=== PATIENT | female | born 1945 | race Caucasian/White ===

== ENCOUNTER 2017-02-14 18:15 | Emergency (ER) | payer MEDICARE, OTHER ==
--- NOTE | 2017-02-14 19:40 | EDM.PDOC ---
ED HPI GENERAL MEDICAL PROBLEM - General Chief Complaint: Cardiovascular Problem Stated Complaint: FROM HOME Time Seen by Provider: 02/14/17 19:15 Source of Information: Reports: Patient History Limitations: Reports: No Limitations - History of Present Illness INITIAL COMMENTS - FREE TEXT/NARRATIVE: This 72 yo female patient reports to the ED due to her home health nurse reporting that the patient needed to come to the ED due to high blood pressure and needing labs. The patient has not had a regular appointment with her primary care provider for "quite a while". The patient reports she has been having increased shortness of breath over the past several months and swelling in her lower extremities. Onset: Gradual Duration: Week(s):, Constant, Getting Worse Location: Reports: Generalized Quality: Reports: Other Severity: Mild Improves with: Reports: None Worsens with: Reports: None Associated Symptoms: Reports: Shortness of Breath - Related Data Allergies Allergy/AdvReac Type Severity Reaction Status Date / Time No Known Allergies Allergy Verified 02/14/17 18:58 Home Meds: Home Meds Amantadine [Symmetrel] 100 mg PO TID 02/14/17 [History] Carbidopa/Levodopa [Sinemet 25-100 mg Tablet] 1 each PO ASDIRECTED 02/14/17 [ History] Fludrocortisone [Florinef] 0.1 mg PO BIDMEALS 02/14/17 [History] Midodrine 5 mg PO QID 02/14/17 [History] Past Medical History HEENT History: Reports: Impaired Vision Cardiovascular History: Reports: Other (See Below) Other Cardiovascular History: hypotension [employer]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 ED EXAM, GENERAL - Physical Exam Exam: See Below Exam Limited By: No Limitations General Appearance: Alert, WD/WN, No Apparent Distress, Thin Eye Exam: Bilateral Eye: EOMI, Normal Inspection, PERRL Ears: Normal External Exam, Normal Canal, Hearing Grossly Normal, Normal TMs Nose: Normal Inspection, Normal Mucosa, No Blood Throat/Mouth: Normal Inspection, Normal Lips, Normal Teeth, Normal Gums, Normal Oropharynx, Normal Voice, No Airway Compromise Head: Atraumatic, Normocephalic Neck: Normal Inspection, Supple, Non-Tender, Full Range of Motion Respiratory/Chest: No Respiratory Distress, Lungs Clear, Normal Breath Sounds, No Accessory Muscle Use, Chest Non-Tender Cardiovascular: Normal Peripheral Pulses, Regular Rate, Rhythm, No Edema, No Gallop, No JVD, No Murmur, No Rub GI/Abdominal: Normal Bowel Sounds, Soft, Non-Tender, No Organomegaly, No Distention, No Abnormal Bruit, No Mass (Female) Exam: Deferred Rectal (Female) Exam: Deferred Back Exam: Normal Inspection, Full Range of Motion, NT Extremities: Normal Inspection, Normal Range of Motion, Non-Tender, Normal Capillary Refill, No Pedal Edema Neurological: Alert, Oriented, CN II-XII Intact, Normal Cognition, Normal Gait, Normal Reflexes, No Motor/Sensory Deficits Psychiatric: Normal Affect, Normal Mood Skin Exam: Warm, Dry, Intact, Normal Color, No Rash Lymphatic: No Adenopathy Course - Vital Signs Last Recorded V/S: Last Vital Signs Temp 36.8 C 02/14/17 18:53 Pulse 82 02/14/17 18:53 Resp 18 02/14/17 18:53 BP 133/85 02/14/17 18:53 Pulse Ox 97 02/14/17 18:53 - Orders/Labs/Meds Labs: Laboratory Tests 02/14/17 02/14/17 02/14/17 Range/Units 19:33 19:33 19:33 WBC 7.5 (5.0-10.0) 10^3/uL RBC 4.01 L (4.2-5.4) 10^6/uL Hgb 12.1 (12.0-16.0) g/dL Hct 37.4 (37.0-47.0) % MCV 93.3 (80-100) fL MCH 30.2 (27.0-34.0) pg MCHC 32.4 L (33.0-35.0) g/dL Plt Count 191 (150-450) 10^3/uL Neut % (Auto) 66.6 (42.2-75.2) % Lymph % (Auto) 25.0 (20.5-50.1) % [place] % (Auto) 7.5 (2-8) % Eos % (Auto) 0.8 L (1.0-3.0) % Baso % (Auto) 0.1 (0.0-1.0) % Sodium 139 (135-145) mmol/L Potassium 4.2 (3.6-5.0) mmol/L Chloride 102 (101-111) mmol/L Carbon Dioxide 29.0 (21.0-31.0) mmol/L Anion Gap 12.2 BUN 16 (7-18) mg/dL Creatinine 0.8 (0.6-1.3) mg/dL Est Cr Clr Drug Dosing 57.20 mL/min Estimated GFR (MDRD) > 60 BUN/Creatinine Ratio 20.00 Glucose 96 (74-105) mg/dL Calcium 9.0 (8.4-10.2) mg/dl Total Bilirubin 0.5 (0.2-1.0) mg/dL AST 13 (10-42) IU/L ALT < 5 L (10-60) IU/L Alkaline Phosphatase 68 (42-121) IU/L B-Natriuretic Peptide 77 (0-100) pg/ml Total Protein 7.0 (6.7-8.2) g/dl Albumin 4.4 (3.2-5.5) g/dl Globulin 2.6 Albumin/Globulin Ratio 1.69 Departure - Departure Time of Disposition: 20:03 Disposition: Home, Self-Care 01 Condition: Fair Clinical Impression: Shortness of breath Instructions: Shortness of Breath, [id number] Forms: ED Department Discharge Care Plan Goals: The patient and were advised of the examination, lab and x-ray results during the visit. The patient was encouraged to follow-up with her primary care facility for continued evaluation and further treatment. If the patient has any additional symptoms or concerns, the patient should follow-up with her primary care facility or return to the emergency department.
[2017-02-14 19:59] LABS: CHLORIDE,CL 102 mmol/L (101-111); SODIUM,NA 139 mmol/L (135-145)
== END 2017-02-14 20:15 | disposition home or self-care (01) ==
LOC: DL.ED 18:15
DX: R06.02 Shortness of breath (principal)
CPT/HCPCS: 36415; 71020; 80053; 83880; 85025; 99285

== ENCOUNTER 2018-11-06 12:56 | Emergency (ER) | payer MEDICARE, OTHER ==
--- NOTE | 2018-11-06 14:18 | EDM.PDOC ---
ED HPI GENERAL MEDICAL PROBLEM - General Chief Complaint: Respiratory Problem Stated Complaint: SOB,HIGH BLOOD PRESSURE Time Seen by Provider: 11/06/18 13:55 Source of Information: Reports: Patient, Family History Limitations: Reports: No Limitations - History of Present Illness INITIAL COMMENTS - FREE TEXT/NARRATIVE: This 73 yo female patient reports to the ED with a 2 month history of increased shortness of breath and elevated blood pressure. The patient reports she is on medications that keep her blood pressure elevated. The patient's home health nurse called the [facility] and was advised to have the patient come to the ED. Onset: Other Duration: Constant, Getting Worse Location: Reports: Chest, Other Quality: Reports: Other Severity: Moderate Improves with: Reports: None Worsens with: Reports: None Context: Reports: Other Associated Symptoms: Reports: No Other Symptoms - Related Data Allergies Allergy/AdvReac Type Severity Reaction Status Date / Time No Known Allergies Allergy Verified 11/06/18 14:04 Home Meds: Home Meds Amantadine [Symmetrel] 50 mg PO TID 02/14/17 [History] Carbidopa/Levodopa [Sinemet 25-100 mg Tablet] 2 tab PO ASDIRECTED 02/14/17 [ History] Fludrocortisone [Florinef] 0.1 mg PO DAILY 02/14/17 [History] Midodrine 5 mg PO ASDIRECTED 02/14/17 [History] Cholecalciferol (Vitamin D3) [Vitamin D3] 5,000 units PO DAILY 06/02/17 [History ] Cyanocobalamin (Vitamin B-12) [Cyanocobalamin Injection] ASDIRECTED 06/02/17 [ History] Cyanocobalamin (Vitamin B12) [Vitamin B12] 500 mcg PO DAILY 06/02/17 [History] Ibuprofen 200 mg PO Q4HR 06/02/17 [History] Melatonin 3 mg PO BEDTIME 06/02/17 [History] Aspirin 81 mg PO BEDTIME 11/06/18 [History] Cholecalciferol (Vitamin D3) [Vitamin D] 5,000 intlu PO DAILY 11/06/18 [History] Docusate Sodium 250 mg PO DAILY 11/06/18 [History] Past Medical History HEENT History: Reports: Impaired Vision Cardiovascular History: Reports: Other (See Below) Other Cardiovascular History: hypotension 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 ED EXAM, GENERAL - Physical Exam Exam: See Below Exam Limited By: No Limitations General Appearance: Alert, WD/WN, Moderate Distress, Thin Eye Exam: Bilateral Eye: EOMI, Normal Inspection, PERRL Ears: Normal External Exam, Normal Canal, Hearing Grossly Normal, Normal TMs Nose: Normal Inspection, Normal Mucosa, No Blood Throat/Mouth: Normal Inspection, Normal Lips, Normal Teeth, Normal Gums, Normal Oropharynx, Normal Voice, No Airway Compromise Head: Atraumatic Neck: Normal Inspection, Supple, Non-Tender, Full Range of Motion Respiratory/Chest: No Respiratory Distress, Lungs Clear, Normal Breath Sounds, No Accessory Muscle Use, Chest Non-Tender Cardiovascular: Normal Peripheral Pulses, Regular Rate, Rhythm, No Gallop, No JVD, No Murmur, No Rub GI/Abdominal: Normal Bowel Sounds, Soft, Non-Tender, No Organomegaly, No Distention, No Abnormal Bruit, No Mass (Female) Exam: Deferred Rectal (Female) Exam: Deferred Back Exam: Normal Inspection, Full Range of Motion, NT Extremities: Pedal Edema (bilateral worse on the right than the left), Leg Pain (right knee pain with swelling (ortho appointment schedules for 11/09/18)) Neurological: Alert, Oriented, CN II-XII Intact, Normal Cognition, Normal Gait, Normal Reflexes, No Motor/Sensory Deficits Psychiatric: Normal Affect, Normal Mood Skin Exam: Warm, Dry, Intact, Normal Color, No Rash Lymphatic: No Adenopathy Course - Vital Signs Last Recorded V/S: Last Vital Signs Temp 36.9 C 11/06/18 13:26 Pulse 132 H 11/06/18 13:26 Resp 20 11/06/18 13:26 BP 132/95 H 11/06/18 13:26 Pulse Ox 98 11/06/18 13:26 - Orders/Labs/Meds Orders: Active Orders 24 hr Category Date Time Status EKG Documentation Completion [RC] URGENT Care 11/06/18 13:43 Inactive EKG Documentation Completion [RC] URGENT Care 11/06/18 13:44 Active CULTURE URINE [RM] Urgent Lab 11/06/18 14:20 Received Labs: Laboratory Tests 11/06/18 11/06/18 11/06/18 Range/Units 13:55 13:55 13:55 WBC 8.4 (5.0-10.0) 10^3/uL RBC 4.02 L (4.2-5.4) 10^6/uL Hgb 12.5 (12.0-16.0) g/dL Hct 38.2 (37.0-47.0) % MCV 95.0 (80-100) fL MCH 31.1 (27.0-34.0) pg MCHC 32.7 L (33.0-35.0) g/dL Plt Count 196 (150-450) 10^3/uL Neut % (Auto) 67.4 (42.2-75.2) % Lymph % (Auto) 25.1 (20.5-50.1) % [place] % (Auto) 6.0 (2-8) % Eos % (Auto) 1.0 (1.0-3.0) % Baso % (Auto) 0.5 (0.0-1.0) % D-Dimer, Quantitative (0-400) ng/mL Sodium (135-145) mmol/L Potassium (3.6-5.0) mmol/L Chloride (101-111) mmol/L Carbon Dioxide (21.0-31.0) mmol/L Anion Gap BUN (7-18) mg/dL Creatinine (0.6-1.3) mg/dL Est Cr Clr Drug Dosing mL/min Estimated GFR (MDRD) BUN/Creatinine Ratio Glucose (74-105) mg/dL Lactic Acid 0.7 (0.5-2.2) mmol/L Calcium (8.4-10.2) mg/dl Total Bilirubin (0.2-1.0) mg/dL AST (10-42) IU/L ALT (10-60) IU/L Alkaline Phosphatase (42-121) IU/L Troponin I (0.00-0.02) ng/ml B-Natriuretic Peptide 154 H (0-100) pg/ml Total Protein (6.7-8.2) g/dl Albumin (3.2-5.5) g/dl Globulin Albumin/Globulin Ratio Urine Color (YELLOW) Urine Appearance (CLEAR) Urine pH (5.0-9.0) Ur Specific [place] (1.005-1.030) Urine Protein (NEGATIVE) Urine Glucose (UA) (NEGATIVE) Urine Ketones (NEGATIVE) Urine Occult Blood (NEGATIVE) Urine Nitrite (NEGATIVE) Urine Bilirubin (NEGATIVE) Urine Urobilinogen (0.2-1.0) mg/dL Ur Leukocyte Esterase (NEGATIVE) Urine RBC /HPF Urine WBC (0-5/HPF) /HPF Ur Epithelial Cells (NOT SEEN) /HPF Amorphous Sediment (NOT SEEN) /HPF Urine Bacteria (0-FEW/HPF) /HPF Urine Mucus (NOT SEEN) /LPF 11/06/18 11/06/18 11/06/18 Range/Units 13:55 13:55 14:20 WBC (5.0-10.0) 10^3/uL RBC (4.2-5.4) 10^6/uL Hgb (12.0-16.0) g/dL Hct (37.0-47.0) % MCV (80-100) fL MCH (27.0-34.0) pg MCHC (33.0-35.0) g/dL Plt Count (150-450) 10^3/uL Neut % (Auto) (42.2-75.2) % Lymph % (Auto) (20.5-50.1) % [place] % (Auto) (2-8) % Eos % (Auto) (1.0-3.0) % Baso % (Auto) (0.0-1.0) % D-Dimer, Quantitative 251 (0-400) ng/mL Sodium 143 (135-145) mmol/L Potassium 3.7 (3.6-5.0) mmol/L Chloride 106 (101-111) mmol/L Carbon Dioxide 28.0 (21.0-31.0) mmol/L Anion Gap 12.7 BUN 15 (7-18) mg/dL Creatinine 0.9 (0.6-1.3) mg/dL Est Cr Clr Drug Dosing 49.83 mL/min Estimated GFR (MDRD) > 60 BUN/Creatinine Ratio 16.66 Glucose 95 (74-105) mg/dL Lactic Acid (0.5-2.2) mmol/L Calcium 8.9 (8.4-10.2) mg/dl Total Bilirubin 0.6 (0.2-1.0) mg/dL AST 15 (10-42) IU/L ALT < 5 L (10-60) IU/L Alkaline Phosphatase 63 (42-121) IU/L Troponin I < 0.02 (0.00-0.02) ng/ml B-Natriuretic Peptide (0-100) pg/ml Total Protein 6.7 (6.7-8.2) g/dl Albumin 4.1 (3.2-5.5) g/dl Globulin 2.6 Albumin/Globulin Ratio 1.58 Urine Color Light yellow (YELLOW) Urine Appearance Clear (CLEAR) Urine pH 6.0 (5.0-9.0) Ur Specific [place] <= 1.005 (1.005-1.030) Urine Protein Negative (NEGATIVE) Urine Glucose (UA) Negative (NEGATIVE) Urine Ketones Negative (NEGATIVE) Urine Occult Blood Trace-lysed H (NEGATIVE) Urine Nitrite Negative (NEGATIVE) Urine Bilirubin Negative (NEGATIVE) Urine Urobilinogen 0.2 (0.2-1.0) mg/dL Ur Leukocyte Esterase Trace H (NEGATIVE) Urine RBC 0-5 /HPF Urine WBC 5-10 H (0-5/HPF) /HPF Ur Epithelial Cells Occasional (NOT SEEN) /HPF Amorphous Sediment Rare (NOT SEEN) /HPF Urine Bacteria Occasional (0-FEW/HPF) /HPF Urine Mucus Not seen (NOT SEEN) /LPF Departure - Departure Time of Disposition: 16:30 Disposition: Home, Self-Care 01 Condition: Fair Clinical Impression: COPD (chronic obstructive pulmonary disease) Qualifiers: COPD type: unspecified COPD Qualified Code(s): J44.9 - Chronic obstructive pulmonary disease, unspecified - Discharge Information *PRESCRIPTION DRUG MONITORING PROGRAM REVIEWED*: Not Applicable *COPY OF PRESCRIPTION DRUG MONITORING REPORT IN PATIENT JANET: Not Applicable Instructions: Chronic Obstructive Pulmonary Disease Exacerbation, [id number] Forms: ED Department Discharge Care Plan Goals: The patient and family were advised of the examination, lab, EKG, x-ray and CT results during the visit. The patient was encouraged to continue to monitor blood pressures with documented times. The patient should follow-up with her primary care facility for continued evaluation (PFT's) and treatment. If the patient has any additional symptoms or concerns, the patient should either return to the emergency department or visit her primary care facility. - My Orders Last 24 Hours: My Active Orders 11/06/18 13:43 EKG Documentation Completion [RC] URGENT 11/06/18 13:44 EKG Documentation Completion [RC] URGENT 11/06/18 14:20 CULTURE URINE [RM] Urgent - Assessment/Plan Last 24 Hours: My Active Orders 11/06/18 13:43 EKG Documentation Completion [RC] URGENT 11/06/18 13:44 EKG Documentation Completion [RC] URGENT 11/06/18 14:20 CULTURE URINE [RM] Urgent
[2018-11-06 14:22] LABS: ANION GAP 12.7; CHLORIDE,CL 106 mmol/L (101-111); SODIUM,NA 143 mmol/L (135-145)
--- NOTE | 2018-11-06 15:31 | CR ---
Clinical history: 73-year-old female with chronic shortness of breath (CXR February 2017 for same complaint). Smoker? Interpretation: Abnormal. (Comparison exam 14 February 2017) Generalized air trapping and asymmetric fibronodular densities left lung apex. Note: New nodular lesion right costophrenic sulcus on PA film that warrants further evaluation. Recommend, at least, unenhanced CT scan chest. No signs of heart failure, other lung mass, hilar lymphadenopathy or focal lobar pneumonia. No atelectasis/collapse. No pneumothorax. Osteoporosis, mild kyphosis, multilevel disc disease and hypertrophic spondylosis dorsal spine. CONCLUSION: Abnormality suggesting COPD. New lung nodule, RLL.
--- NOTE | 2018-11-06 16:22 | CT ---
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 Scan technique: Volume acquisition of data unenhanced screening CT scan chest (bony thorax, lungs and mediastinum) obtained with patient lying supine on the Siemens multi slice scanner [place], [place]. All data archived in the PACS system for storage, reformatting axial/sagittal/coronal planes and study (lung/mediastinal windows). Interpretation: 1. Linear atelectasis/pleural parenchymal fibrosis laterally in the right cost phrenic sulcus communicating "lung nodule". 2. Platelike atelectasis posterior segment contralateral left lower lobe, posterior medially (behind the heart). Lingular fibrosis. 3. Generalized air trapping and some apical pleural scarring. No other evidence parenchymal lung nodule or mass lesion. 4. No significant hilar or mediastinal lymphadenopathy. No cystic or bullous emphysematous lesions. No malignant effusions. 5. Normal cardiac silhouette. No pericardial effusion, cephalization of vascular flow, alveolar edema or dependent pleural fluid. 6. Unenhanced upper abdominal viscera unremarkable. Normal caliber thoracic and upper abdominal aorta. Kyphosis, osteoporosis and marginal spondylosis dorsal spine. No pathologic skeletal lesion, fracture or dislocation. CONCLUSION: Pleural parenchymal scarring and atelectasis. Generalized air trapping. No signs of heart failure, lung mass or lobar pneumonia. Specifically, no sign of lung nodule or malignant mass lesion.
== END 2018-11-06 16:46 | disposition home or self-care (01) ==
LOC: DL.ED 12:56
DX: J44.9 Chronic obstructive pulmonary disease, unspecified (principal); M25.561 Pain in right knee; G20 Parkinson's disease; Z79.82 Long term (current) use of aspirin; Z79.899 Other long term (current) drug therapy
CPT/HCPCS: 36415; 71046; 71250; 80053; 81001; 83605; 83880; 84484; 85025; 85379; 87086; 93005; 99285-25

== ENCOUNTER 2020-06-06 03:26 | Observation (INO) | payer MEDICARE, OTHER ==
[2020-06-06 04:15] LABS: ANION GAP 11.6 mEq/L (7-13)
--- NOTE | 2020-06-06 04:24 | EDM.PDOC ---
ED HPI GENERAL MEDICAL PROBLEM - General Stated Complaint: [facility] Time Seen by Provider: 06/06/20 03:29 Source of Information: Reports: Patient, EMS, Family, RN History Limitations: Reports: No Limitations - History of Present Illness INITIAL COMMENTS - FREE TEXT/NARRATIVE: ED via [facility] with report increased legth of confusion and paranoia tonight. Spouse reports hx of confusional states due to parkinsonsons but over past 2 months getting more frequent and more severe. Tonight , thought people were trying to break into home. Patient has not slept more than one hour in past 2 nights. Wandering across street to neighbors without jacket or coat. Right Leg Pain Score (Numeric/FACES): 8 - Related Data Allergies Allergy/AdvReac Type Severity Reaction Status Date / Time No Known Allergies Allergy Verified 06/06/20 05:56 Home Meds: Home Meds Amantadine [Symmetrel] 50 mg PO TID 02/14/17 [History] Carbidopa/Levodopa [Sinemet 25-100 mg Tablet] 2 tab PO Q3H 02/14/17 [History] Fludrocortisone [Florinef] 0.05 mg PO DAILY 02/14/17 [History] Midodrine 5 mg PO QID 02/14/17 [History] Cyanocobalamin (Vitamin B-12) [Cyanocobalamin Injection] 1,000 mcg IM Q30D 06/02/17 [History] Ibuprofen 200 mg PO Q4HR 06/02/17 [History] Melatonin 3 mg PO BEDTIME 06/02/17 [History] Aspirin 81 mg PO BEDTIME 11/06/18 [History] Cholecalciferol (Vitamin D3) [Vitamin D] 5,000 intlu PO DAILY 11/06/18 [History] Docusate Sodium 250 mg PO DAILY 11/06/18 [History] Donepezil HCl [Aricept] 10 mg PO BID 06/06/20 [History] Vitamin B Complex 1 each PO DAILY 06/06/20 [History] Past Medical History HEENT History: Reports: Impaired Vision Cardiovascular History: Reports: Other (See Below) Other Cardiovascular History: hypotension Respiratory History: Reports: SOB Gastrointestinal History: Reports: None Genitourinary History: Reports: None DIRECTOR PHYSICAL History: Reports: Musculoskeletal History: Reports: Other (See Below) Other Musculoskeletal History: Parkinsons Neurological History: Reports: Parkinson's Hematologic History: Reports: Anemia, B12 Deficiency Social & Family History - Caffeine Use Caffeine Use: Reports: Coffee, Soda ED ROS GENERAL - Review of Systems Review Of Systems: See Below Constitutional: Reports: Weakness (general). Denies: Fever, Chills HEENT: Reports: No Symptoms, Glasses Respiratory: Reports: No Symptoms Cardiovascular: Reports: No Symptoms GI/Abdominal: Reports: No Symptoms : Reports: Frequency, Urgency Musculoskeletal: Reports: Leg Pain (chronic right knee) Skin: Reports: Bruising Neurological: Reports: Confusion, Tremors ED EXAM, GENERAL - Physical Exam Exam: See Below Exam Limited By: No Limitations General Appearance: Alert, Mild Distress, Thin Eye Exam: Bilateral Eye: EOMI, PERRL Ears: Normal External Exam, Hearing Grossly Normal Nose: Normal Inspection Throat/Mouth: Normal Voice, Other (mucus membranes slightly tacky) Head: Atraumatic, Normocephalic Neck: Normal Inspection Respiratory/Chest: No Respiratory Distress, Lungs Clear, Normal Breath Sounds Cardiovascular: Regular Rate, Rhythm GI/Abdominal: Normal Bowel Sounds Back Exam: Full Range of Motion Extremities: Normal Inspection Neurological: Alert, Oriented, Normal Cognition Psychiatric: Anxious Skin Exam: Warm, Dry, Intact Course - Vital Signs Last Recorded V/S: Last Vital Signs Temp 98 F 06/07/20 01:00 Pulse 70 06/07/20 01:00 Resp 20 06/07/20 01:00 BP 150/66 H 06/07/20 01:00 Pulse Ox 97 06/07/20 01:00 - Orders/Labs/Meds Orders: Active Orders 24 hr Category Date Time Status CULTURE BLOOD [BC] Stat Lab 06/06/20 03:42 Received CULTURE URINE [RM] Stat Lab 06/06/20 03:42 Received Medication Orders Acetaminophen (Acetaminophen 325 Mg Tab) 650 mg PO Q4H PRN PRN Reason: Pain (Mild 1-3)/fever Aspirin (Aspirin 81 Mg Tab.Chew) 81 mg PO BEDTIME [facility] Last Admin: 06/06/20 20:38 Dose: 81 mg Documented by: NATALY Carbidopa/Levodopa (Carbidopa/Levodopa 25-100 Mg Tab) 2 tab PO Q3H [facility] Last Admin: 06/07/20 01:02 Dose: 2 tab Documented by: Admin: 06/06/20 21:54 Dose: 2 tab Documented by: Admin: 06/06/20 18:08 Dose: 2 tab Documented by: Admin: 06/06/20 16:14 Dose: 2 tab Documented by: Admin: 06/06/20 13:11 Dose: 2 tab Documented by: Admin: 06/06/20 10:04 Dose: 2 tab Documented by: Admin: 06/06/20 07:36 Dose: 2 tab Documented by: MARIAM Docusate Sodium (Docusate Sodium 100 Mg Cap) 200 mg PO DAILY [facility] Last Admin: 06/06/20 09:27 Dose: 200 mg Documented by: MARIAM Donepezil HCl (Donepezil 10 Mg Tab) 10 mg PO BID [facility] Last Admin: 06/06/20 20:38 Dose: 10 mg Documented by: Admin: 06/06/20 09:28 Dose: 10 mg Documented by: MARIAM Enoxaparin Sodium (Enoxaparin 40 Mg/0.4 Ml Syringe) 40 mg SUBCUT DAILY [facility] Fludrocortisone Acetate (Fludrocortisone 0.1 Mg Tab) 0.05 mg PO DAILY [facility] Last Admin: 06/06/20 09:27 Dose: 0.05 mg Documented by: MARIAM Ibuprofen (Ibuprofen 200 Mg Tab) 200 mg PO Q4H PRN PRN Reason: Pain (moderate 4-6) Last Admin: 06/06/20 20:37 Dose: 200 mg Documented by: NATALY Melatonin (Melatonin 3 Mg Tab) 3 mg PO BEDTIME [facility] Last Admin: 06/06/20 21:55 Dose: 3 mg Documented by: NATALY Midodrine (Midodrine 2.5 Mg Tab) 5 mg PO 0700,1000,1300,1600 [facility] Last Admin: 06/06/20 16:14 Dose: 5 mg Documented by: Admin: 06/06/20 13:10 Dose: 5 mg Documented by: Admin: 06/06/20 10:05 Dose: 5 mg Documented by: Admin: 06/06/20 07:36 Dose: 5 mg Documented by: MARIAM Polyethylene Glycol (Polyethylene Glycol 3350 Powder 17 Gm Packet) 17 gm PO DAILY [facility] Quetiapine Fumarate (Quetiapine 25 Mg Tab) 25 mg PO BID [facility] Last Admin: 06/06/20 21:55 Dose: 25 mg Documented by: NATALY Sodium Chloride (Sodium Chloride 0.9% 10 Ml Syringe) 10 ml FLUSH ASDIRECTED PRN PRN Reason: Keep Vein Open Last Admin: 06/06/20 21:57 Dose: 10 ml Documented by: NATALY Labs: Laboratory Tests 06/06/20 06/06/20 06/06/20 Range/Units 03:42 03:42 03:42 WBC 5.0 (5.0-10.0) 10^3/uL RBC 3.87 L (4.2-5.4) 10^6/uL Hgb 12.2 (12.0-16.0) g/dL Hct 37.2 (37.0-47.0) % MCV 96.1 (80-100) fL MCH 31.5 (27.0-34.0) pg MCHC 32.8 L (33.0-35.0) g/dL Plt Count 158 (150-450) 10^3/uL Neut % (Auto) 55.6 (42.2-75.2) % Lymph % (Auto) 33.7 (20.5-50.1) % [place] % (Auto) 9.1 H (2-8) % Eos % (Auto) 1.0 (1.0-3.0) % Baso % (Auto) 0.6 (0.0-1.0) % PT (9.0-12.0) SEC INR (0.9-1.2) Sodium 146 H (136-145) mmol/L Potassium 3.6 (3.5-5.1) mmol/L Chloride 107 (98-107) mmol/L Carbon Dioxide 31 (21-32) mmol/L Anion Gap 11.6 (7-13) mEq/L BUN 17 (7-18) mg/dL Creatinine 0.92 (0.55-1.02) mg/dL Est Cr Clr Drug Dosing 43.89 mL/min Estimated GFR (MDRD) 60 BUN/Creatinine Ratio 18.5 (No establ ref range) Glucose 109 H (74-99) mg/dL Lactic Acid (0.4-2.0) mmol/L Calcium 9.1 (8.5-10.1) mg/dL Magnesium 1.7 L (1.8-2.4) mg/dL Total Bilirubin 0.6 (0.2-1.0) mg/dL AST 15 (15-37) U/L ALT 9 L (14-59) U/L Alkaline Phosphatase 63 (46-116) U/L B-Natriuretic Peptide 150 H (0-100) pg/ml Total Protein 6.9 (6.4-8.2) g/dL Albumin 3.7 (3.4-5.0) g/dL Globulin 3.2 Albumin/Globulin Ratio 1.2 Urine Color Yellow (YELLOW) Urine Appearance Clear (CLEAR) Urine pH 5.5 (5.0-9.0) Ur Specific [place] 1.015 (1.005-1.030) Urine Protein Negative (NEGATIVE) Urine Glucose (UA) Negative (NEGATIVE) Urine Ketones Negative (NEGATIVE) Urine Occult Blood Negative (NEGATIVE) Urine Nitrite Negative (NEGATIVE) Urine Bilirubin Negative (NEGATIVE) Urine Urobilinogen 0.2 (0.2-1.0) mg/dL Ur Leukocyte Esterase Trace H (NEGATIVE) Urine RBC 0-5 /HPF Urine WBC 10-20 H (0-5/HPF) /HPF Ur Epithelial Cells Rare (NOT SEEN) /HPF Amorphous Sediment Rare (NOT SEEN) /HPF Urine Bacteria Few (0-FEW/HPF) /HPF Urine Mucus Rare (NOT SEEN) /LPF 06/06/20 06/06/20 Range/Units 03:42 03:42 WBC (5.0-10.0) 10^3/uL RBC (4.2-5.4) 10^6/uL Hgb (12.0-16.0) g/dL Hct (37.0-47.0) % MCV (80-100) fL MCH (27.0-34.0) pg MCHC (33.0-35.0) g/dL Plt Count (150-450) 10^3/uL Neut % (Auto) (42.2-75.2) % Lymph % (Auto) (20.5-50.1) % [place] % (Auto) (2-8) % Eos % (Auto) (1.0-3.0) % Baso % (Auto) (0.0-1.0) % PT 11.0 (9.0-12.0) SEC INR 1.1 (0.9-1.2) Sodium (136-145) mmol/L Potassium (3.5-5.1) mmol/L Chloride (98-107) mmol/L Carbon Dioxide (21-32) mmol/L Anion Gap (7-13) mEq/L BUN (7-18) mg/dL Creatinine (0.55-1.02) mg/dL Est Cr Clr Drug Dosing mL/min Estimated GFR (MDRD) BUN/Creatinine Ratio (No establ ref range) Glucose (74-99) mg/dL Lactic Acid 0.9 (0.4-2.0) mmol/L Calcium (8.5-10.1) mg/dL Magnesium (1.8-2.4) mg/dL Total Bilirubin (0.2-1.0) mg/dL AST (15-37) U/L ALT (14-59) U/L Alkaline Phosphatase (46-116) U/L B-Natriuretic Peptide (0-100) pg/ml Total Protein (6.4-8.2) g/dL Albumin (3.4-5.0) g/dL Globulin Albumin/Globulin Ratio Urine Color (YELLOW) Urine Appearance (CLEAR) Urine pH (5.0-9.0) Ur Specific [place] (1.005-1.030) Urine Protein (NEGATIVE) Urine Glucose (UA) (NEGATIVE) Urine Ketones (NEGATIVE) Urine Occult Blood (NEGATIVE) Urine Nitrite (NEGATIVE) Urine Bilirubin (NEGATIVE) Urine Urobilinogen (0.2-1.0) mg/dL Ur Leukocyte Esterase (NEGATIVE) Urine RBC /HPF Urine WBC (0-5/HPF) /HPF Ur Epithelial Cells (NOT SEEN) /HPF Amorphous Sediment (NOT SEEN) /HPF Urine Bacteria (0-FEW/HPF) /HPF Urine Mucus (NOT SEEN) /LPF Meds: Medications Generic Name Dose Route Start Last Admin Trade Name Freq PRN Reason Stop Dose Admin Acetaminophen 650 mg 06/06/20 07:18 Acetaminophen 325 Mg Tab PO Q4H PRN Pain (Mild 1-3)/fever Aspirin 81 mg 06/06/20 21:00 06/06/20 20:38 Aspirin 81 Mg Tab.Chew PO 81 mg BEDTIME [facility] Administration Carbidopa/Levodopa 2 tab 06/06/20 07:00 06/07/20 01:02 Carbidopa/Levodopa 25-100 Mg Tab PO 2 tab Q3H [facility] Administration Docusate Sodium 200 mg 06/06/20 09:00 06/06/20 09:27 Docusate Sodium 100 Mg Cap PO 200 mg DAILY [facility] Administration Donepezil HCl 10 mg 06/06/20 09:00 06/06/20 20:38 Donepezil 10 Mg Tab PO 10 mg BID [facility] Administration Enoxaparin Sodium 40 mg 06/07/20 09:00 Enoxaparin 40 Mg/0.4 Ml Syringe SUBCUT DAILY [facility] Fludrocortisone Acetate 0.05 mg 06/06/20 09:00 06/06/20 09:27 Fludrocortisone 0.1 Mg Tab PO 0.05 mg DAILY [facility] Administration Ibuprofen 200 mg 06/06/20 20:14 06/06/20 20:37 Ibuprofen 200 Mg Tab PO 200 mg Q4H PRN Administration Pain (moderate 4-6) Melatonin 3 mg 06/06/20 21:00 06/06/20 21:55 Melatonin 3 Mg Tab PO 3 mg BEDTIME [facility] Administration Midodrine 5 mg 06/06/20 07:30 06/06/20 16:14 Midodrine 2.5 Mg Tab PO 5 mg 0700,1000,1300,1600 [facility] Administration Polyethylene Glycol 17 gm 06/07/20 09:00 Polyethylene Glycol 3350 Powder 17 Gm Packet PO DAILY [facility] Quetiapine Fumarate 25 mg 06/06/20 21:00 06/06/20 21:55 Quetiapine 25 Mg Tab PO 25 mg BID [facility] Administration Sodium Chloride 10 ml 06/06/20 20:43 06/06/20 21:57 Sodium Chloride 0.9% 10 Ml Syringe FLUSH 10 ml ASDIRECTED PRN Administration Keep Vein Open Discontinued Medications Generic Name Dose Route Start Last Admin Trade Name Freq PRN Reason Stop Dose Admin Amantadine HCl 50 mg 06/06/20 09:00 06/06/20 14:17 Amantadine 100 Mg Cap PO Not Given TID [facility] Carbidopa/Levodopa 1 tab 06/06/20 04:28 06/06/20 04:38 Carbidopa/Levodopa 25-100 Mg Tab PO 06/06/20 04:29 1 tab ONETIME ONE Administration Carbidopa/Levodopa 1 tab 06/06/20 05:40 06/06/20 05:54 Carbidopa/Levodopa 25-100 Mg Tab PO 06/06/20 05:41 1 tab ONETIME ONE Administration Enoxaparin Sodium 30 mg 06/07/20 09:00 Enoxaparin 30 Mg/0.3 Ml Syringe SUBCUT DAILY [facility] Heparin Sodium (Porcine) 5,000 units 06/06/20 14:00 06/06/20 21:58 Heparin Sodium 5,000 Units/Ml Vial SUBCUT Not Given Q8HR [facility] Amantadine 100 Mg 0 each 06/06/20 13:00 06/06/20 13:54 Tab Pt Own Med PO 0.5 each BID@0700,1900 [facility] Administration Quetiapine Fumarate 12.5 mg 06/06/20 07:29 06/06/20 07:39 Quetiapine 25 Mg Tab PO 06/06/20 07:30 12.5 mg ONETIME ONE Administration - Re-Assessments/Exams Free Text/Narrative Re-Assessment/Exam: 06/06/20 05:22 transient confusion and paranoia. Urinary frequency and urgency. Departure - Departure Time of Disposition: 05:45 Disposition: Refer to Observation Clinical Impression: Parkinson's disease, Transient confusion, Unsteady gait, Urinary frequency COPD (chronic obstructive pulmonary disease) Qualifiers: COPD type: unspecified COPD Qualified Code(s): J44.9 - Chronic obstructive pulmonary disease, unspecified Insomnia disorder Qualifiers: Insomnia type: unspecified Qualified Code(s): G47.00 - Insomnia, unspecified - Discharge Information - My Orders Last 24 Hours: My Active Orders 06/06/20 03:42 CULTURE BLOOD [BC] Stat CULTURE URINE [RM] Stat - Assessment/Plan Last 24 Hours: My Active Orders 06/06/20 03:42 CULTURE BLOOD [BC] Stat CULTURE URINE [RM] Stat
[2020-06-06] MEDS ORDERED: Carbidopa/Levodopa 25-100 MG Tab PO ONE ×2 (04:28→05:40)
--- NOTE | 2020-06-06 04:35 | CT ---
PROCEDURE INFORMATION: Exam: CT Head Without Contrast Exam date and time: 06/06/2020 4:17 AM Age: 75 years old Clinical indication: Altered mental status/memory loss; Confusion or disorientation; Additional info: Altered mental state TECHNIQUE: Imaging protocol: Computed tomography of the head without contrast. Radiation optimization: All CT scans at this facility use at least one of these dose optimization techniques: automated exposure control; mA and/or kV adjustment per patient size (includes targeted exams where dose is matched to clinical indication); or iterative reconstruction. Other technique: STROKE PROTOCOL was implemented. COMPARISON: No relevant prior studies available. FINDINGS: Brain: No acute infarct or hemorrhage. There is mild parenchymal atrophy and chronic small vessel disease. Cerebral ventricles: No ventriculomegaly. Bones/joints: Unremarkable. No acute fracture. Paranasal sinuses: Paranasal sinuses are clear. No air-fluid level. Mastoid air cells: Visualized mastoid air cells are clear. Soft tissues: Unremarkable. Other findings: Images are degraded by motion. IMPRESSION: 1. No acute infarct or hemorrhage. 2. Images are degraded by motion. 3. Mild parenchymal atrophy and chronic small vessel disease. ASSESSMENT: ASPECTS ([place] Stroke Program Early CT Score) is 10.
--- NOTE | 2020-06-06 04:40 | CR ---
PROCEDURE INFORMATION: Exam: XR Chest Exam date and time: 06/06/2020 4:23 AM Age: 75 years old Clinical indication: Shortness of breath; Additional info: Altered mental state TECHNIQUE: Imaging protocol: XR of the chest Views: 1 view. COMPARISON: CR Chest 2V 01/12/2019 10:08 AM FINDINGS: Lungs: Unremarkable. No consolidation. Pleural spaces: Unremarkable. No pleural effusion. No pneumothorax. Heart/Mediastinum: Unremarkable. No cardiomegaly. Bones/joints: Unremarkable. IMPRESSION: No acute findings.
--- NOTE | 2020-06-06 06:57 | PCM.HP ---
H&P History of Present Illness - General Date of Service: 06/06/20 Admit Problem/Dx: Admission Diagnosis/Problem Admission Diagnosis/Problem Confusion and disorientation - History of Present Illness Initial Comments - Free Text/Narative: 75F w/ pmh PD, hypotension, COVID19 several months ago p/w hallucinations. Pt lives w/ who provides extensive hx. Over past several months the pt has developed paranoia and hallucinations. She typically hallucinates people sitting on chairs or on the couch in the house. Sometimes they have multiple heads. This makes her very upset. She denies hearing any voices. They people she sees don't say anything to her. She has not been combative or aggressive towards the . He works during the day and is home for the night. Rarely, but the patient has been known to wonder out of the house to look for him. He denies any truly dangerous situations ex. wondering out dressed inappropriately, leaving stove on, leaving the house door open. She denies any physical symptoms of pain, nausea, abdominal pains, dyspnea, cough. She does have chronic dysuria since her COVID19 diagnosis several months ago. Of note the pt is on a rather large Sinemet dose. She takes 2x 25/100 mg tabs q3h. This is a total of 1.6 grams of levodopa per 24h. Additionally she takes amantadine. In addition to current paranoia and hallucinations in the past the pt had apparently been noted hypotensive requiring florinef and midodrine for maintenance. - Related Data Allergies/Adverse Reactions: Allergies Allergy/AdvReac Type Severity Reaction Status Date / Time No Known Allergies Allergy Verified 06/06/20 05:56 Home Medications: Home Meds Amantadine [Symmetrel] 50 mg PO TID 02/14/17 [History] Carbidopa/Levodopa [Sinemet 25-100 mg Tablet] 2 tab PO Q3H 02/14/17 [History] Fludrocortisone [Florinef] 0.05 mg PO DAILY 02/14/17 [History] Midodrine 5 mg PO QID 02/14/17 [History] Cyanocobalamin (Vitamin B-12) [Cyanocobalamin Injection] 1,000 mcg IM Q30D 06/02/17 [History] Ibuprofen 200 mg PO Q4HR 06/02/17 [History] Melatonin 3 mg PO BEDTIME 06/02/17 [History] Aspirin 81 mg PO BEDTIME 11/06/18 [History] Cholecalciferol (Vitamin D3) [Vitamin D] 5,000 intlu PO DAILY 11/06/18 [History] Docusate Sodium 250 mg PO DAILY 11/06/18 [History] Donepezil HCl [Aricept] 10 mg PO BID 06/06/20 [History] Vitamin B Complex 1 each PO DAILY 06/06/20 [History] Past Medical History HEENT History: Reports: Cataract, Impaired Vision Cardiovascular History: Reports: Other (See Below) Other Cardiovascular History: hypotension Respiratory History: Reports: SOB Gastrointestinal History: Reports: Chronic Constipation, Chronic Diarrhea Genitourinary History: Reports: Other (See Below) Other Genitourinary History: stress incontinence 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: Musculoskeletal History: Reports: Other (See Below) Other Musculoskeletal History: Parkinsons Neurological History: Reports: Parkinson's Psychiatric History: Reports: Anxiety Hematologic History: Reports: Anemia, B12 Deficiency - Infectious Disease History Infectious Disease History: Reports: Chicken Pox, Measles, Mumps, Rheumatic Fever, Other (See Below) Other Infectious Disease History: COVID in 2019 - Past Surgical History HEENT Surgical History: Reports: Cataract Surgery Cardiovascular Surgical History: Reports: None GI Surgical History: Reports: None Female Surgical History: Reports: None Neurological Surgical History: Reports: None Musculoskeletal Surgical History: Reports: None Social & Family History - Family History Family Medical History: No Pertinent Family History - Tobacco Use Tobacco Use Status *Q: Never Tobacco User Second Hand Smoke Exposure: No - Caffeine Use Caffeine Use: Reports: Coffee, Soda - Recreational Drug Use Recreational Drug Use: No H&P Review of Systems - Review of Systems: Review Of Systems: See Below General: Denies: Fever, Chills, Malaise, Weakness, Diaphoresis HEENT: Denies: Headaches Pulmonary: Denies: Shortness of Breath, Wheezing Cardiovascular: Denies: Chest Pain, Palpitations, Orthopnea Gastrointestinal: Denies: Abdominal Pain, Constipation, Diarrhea Genitourinary: Reports: Dysuria Musculoskeletal: Denies: Neck Pain Skin: Denies: Jaundice Psychiatric: Reports: Hallucinations Neurological: Denies: Dizziness Hematologic/Lymphatic: Denies: Easy Bleeding Immunologic: Denies: Anaphylaxis Exam - Exam Exam: See Below - Vital Signs Vital Signs: Last Vital Signs Temp 98.4 F 06/06/20 03:26 Pulse 86 06/06/20 03:26 Resp 18 06/06/20 03:26 BP 167/73 H 06/06/20 03:26 Pulse Ox 99 06/06/20 03:26 Weight: 103 lb - Exam Quality Assessment: No: Supplemental Oxygen General: Alert, Oriented, Cooperative HEENT: Conjunctiva Clear Neck: Supple Lungs: Clear to Auscultation, Normal Respiratory Effort Cardiovascular: Regular Rate, Regular Rhythm GI/Abdominal Exam: Normal Bowel Sounds, Soft, Non-Tender, No Distention Back Exam: Normal Inspection Extremities: No Pedal Edema Skin: Warm, Dry, Intact Neurological: Normal Speech Neuro Extensive - Mental Status: Memory Intact Neuro Extensive - Motor, Sensory, Reflexes: No: Tremor Psychiatric: Alert, Anxious, Hallucinations - Patient Data Lab Results Last 24 hrs: Laboratory Results - last 24 hr 06/06/20 06/06/20 06/06/20 Range/Units 03:42 03:42 03:42 WBC 5.0 (5.0-10.0) 10^3/uL RBC 3.87 L (4.2-5.4) 10^6/uL Hgb 12.2 (12.0-16.0) g/dL Hct 37.2 (37.0-47.0) % MCV 96.1 (80-100) fL MCH 31.5 (27.0-34.0) pg MCHC 32.8 L (33.0-35.0) g/dL Plt Count 158 (150-450) 10^3/uL Neut % (Auto) 55.6 (42.2-75.2) % Lymph % (Auto) 33.7 (20.5-50.1) % Scott % (Auto) 9.1 H (2-8) % Eos % (Auto) 1.0 (1.0-3.0) % Baso % (Auto) 0.6 (0.0-1.0) % PT (9.0-12.0) SEC INR (0.9-1.2) Sodium 146 H (136-145) mmol/L Potassium 3.6 (3.5-5.1) mmol/L Chloride 107 (98-107) mmol/L Carbon Dioxide 31 (21-32) mmol/L Anion Gap 11.6 (7-13) mEq/L BUN 17 (7-18) mg/dL Creatinine 0.92 (0.55-1.02) mg/dL Est Cr Clr Drug Dosing 43.89 mL/min Estimated GFR (MDRD) 60 BUN/Creatinine Ratio 18.5 (No establ ref range) Glucose 109 H (74-99) mg/dL Lactic Acid (0.4-2.0) mmol/L Calcium 9.1 (8.5-10.1) mg/dL Magnesium 1.7 L (1.8-2.4) mg/dL Total Bilirubin 0.6 (0.2-1.0) mg/dL AST 15 (15-37) U/L ALT 9 L (14-59) U/L Alkaline Phosphatase 63 (46-116) U/L B-Natriuretic Peptide 150 H (0-100) pg/ml Total Protein 6.9 (6.4-8.2) g/dL Albumin 3.7 (3.4-5.0) g/dL Globulin 3.2 Albumin/Globulin Ratio 1.2 Urine Color Yellow (YELLOW) Urine Appearance Clear (CLEAR) Urine pH 5.5 (5.0-9.0) Ur Specific [place] 1.015 (1.005-1.030) Urine Protein Negative (NEGATIVE) Urine Glucose (UA) Negative (NEGATIVE) Urine Ketones Negative (NEGATIVE) Urine Occult Blood Negative (NEGATIVE) Urine Nitrite Negative (NEGATIVE) Urine Bilirubin Negative (NEGATIVE) Urine Urobilinogen 0.2 (0.2-1.0) mg/dL Ur Leukocyte Esterase Trace H (NEGATIVE) Urine RBC 0-5 /HPF Urine WBC 10-20 H (0-5/HPF) /HPF Ur Epithelial Cells Rare (NOT SEEN) /HPF Amorphous Sediment Rare (NOT SEEN) /HPF Urine Bacteria Few (0-FEW/HPF) /HPF Urine Mucus Rare (NOT SEEN) /LPF 06/06/20 06/06/20 Range/Units 03:42 03:42 WBC (5.0-10.0) 10^3/uL RBC (4.2-5.4) 10^6/uL Hgb (12.0-16.0) g/dL Hct (37.0-47.0) % MCV (80-100) fL MCH (27.0-34.0) pg MCHC (33.0-35.0) g/dL Plt Count (150-450) 10^3/uL Neut % (Auto) (42.2-75.2) % Lymph % (Auto) (20.5-50.1) % Scott % (Auto) (2-8) % Eos % (Auto) (1.0-3.0) % Baso % (Auto) (0.0-1.0) % PT 11.0 (9.0-12.0) SEC INR 1.1 (0.9-1.2) Sodium (136-145) mmol/L Potassium (3.5-5.1) mmol/L Chloride (98-107) mmol/L Carbon Dioxide (21-32) mmol/L Anion Gap (7-13) mEq/L BUN (7-18) mg/dL Creatinine (0.55-1.02) mg/dL Est Cr Clr Drug Dosing mL/min Estimated GFR (MDRD) BUN/Creatinine Ratio (No establ ref range) Glucose (74-99) mg/dL Lactic Acid 0.9 (0.4-2.0) mmol/L Calcium (8.5-10.1) mg/dL Magnesium (1.8-2.4) mg/dL Total Bilirubin (0.2-1.0) mg/dL AST (15-37) U/L ALT (14-59) U/L Alkaline Phosphatase (46-116) U/L B-Natriuretic Peptide (0-100) pg/ml Total Protein (6.4-8.2) g/dL Albumin (3.4-5.0) g/dL Globulin Albumin/Globulin Ratio Urine Color (YELLOW) Urine Appearance (CLEAR) Urine pH (5.0-9.0) Ur Specific [place] (1.005-1.030) Urine Protein (NEGATIVE) Urine Glucose (UA) (NEGATIVE) Urine Ketones (NEGATIVE) Urine Occult Blood (NEGATIVE) Urine Nitrite (NEGATIVE) Urine Bilirubin (NEGATIVE) Urine Urobilinogen (0.2-1.0) mg/dL Ur Leukocyte Esterase (NEGATIVE) Urine RBC /HPF Urine WBC (0-5/HPF) /HPF Ur Epithelial Cells (NOT SEEN) /HPF Amorphous Sediment (NOT SEEN) /HPF Urine Bacteria (0-FEW/HPF) /HPF Urine Mucus (NOT SEEN) /LPF Result Diagrams: 06/06/20 03:42 06/06/20 03:42 Problem List Initiated/Reviewed/Updated: No Orders Last 24hrs: Active Orders 24 hr Category Date Time Status Admission Diagnosis [ADT] Stat ADT 06/06/20 05:12 Ordered Patient Status [ADT] Routine ADT 06/06/20 05:12 Active CULTURE BLOOD [BC] Stat Lab 06/06/20 03:42 Received CULTURE URINE [RM] Stat Lab 06/06/20 03:42 Received Assessment/Plan Comment:: #visual hallucinations and paranoia - this is most likely a dopaminergic side effect of the large dose of Sinemet - will d/w clinical pharmacist and pt's neurologist re tapering the dose of Sinemet and Amantadine - s/p trial dose of 12.5 mg Seroquel this morning w/ good effect #PD - med mgt as above - the pt dose not appear very rigid - likely will tolerate lower doses #chronic dysuria - UA is bland - will await cultures PPX - [facility] Full code updated at bedside
[2020-06-06] MEDS ORDERED: Acetaminophen 325 MG Tab PO PRN (07:18)
[2020-06-06] MEDS ORDERED: QUEtiapine 25 MG Tab PO ONE (07:29)
[2020-06-06] MEDS: Midodrine 2.5 MG Tab PO SCH ×4 (07:36→16:14)
[2020-06-06] MEDS: Carbidopa/Levodopa 25-100 MG Tab PO SCH ×6 (07:36→21:54)
[2020-06-06] MEDS ORDERED: Amantadine 100 MG Cap PO SCH (09:00)
[2020-06-06] MEDS: Docusate Sodium 100 MG Cap PO SCH (09:27)
[2020-06-06] MEDS: Fludrocortisone 0.1 MG Tab PO SCH (09:27)
[2020-06-06] MEDS: Donepezil 10 MG Tab PO SCH ×2 (09:28→20:38)
[2020-06-06] MEDS ORDERED: AMANTADINE 100 MG PO SCH (13:00)
[2020-06-06] MEDS: Heparin Sodium 5,000 Units/ML Vial SUBCUT SCH ×2 (14:15→21:58)
[2020-06-06] MEDS ORDERED: Carbidopa/Levodopa 25-100 MG Tab PO SCH ×2 (19:00)
[2020-06-06] MEDS ORDERED: Ibuprofen 200 MG Tab PO PRN (20:14)
[2020-06-06] MEDS: Aspirin 81 MG Tab.Chew PO SCH (20:38)
[2020-06-06] MEDS: QUEtiapine 25 MG Tab PO SCH (21:55)
[2020-06-06] MEDS: Melatonin 3 MG Tab PO SCH (21:55)
[2020-06-06] MEDS: Sodium Chloride 0.9% 10 ML Syringe FLUSH PRN (21:57)
[2020-06-07] MEDS: Carbidopa/Levodopa 25-100 MG Tab PO SCH ×8 (01:02→21:57)
[2020-06-07] MEDS: Midodrine 2.5 MG Tab PO SCH ×4 (06:56→17:10)
[2020-06-07] MEDS: Polyethylene Glycol 3350 Powder 17 GM Packet PO SCH (08:28)
[2020-06-07] MEDS: Docusate Sodium 100 MG Cap PO SCH (08:29)
[2020-06-07] MEDS: Donepezil 10 MG Tab PO SCH ×2 (08:29→20:49)
[2020-06-07] MEDS: QUEtiapine 25 MG Tab PO SCH ×2 (08:29→20:49)
[2020-06-07] MEDS: Fludrocortisone 0.1 MG Tab PO SCH (08:30)
[2020-06-07] MEDS: Sodium Chloride 0.9% 10 ML Syringe FLUSH PRN (08:31)
[2020-06-07] MEDS: Enoxaparin 40 MG/0.4 ML Syringe SUBCUT SCH (08:31)
[2020-06-07] MEDS ORDERED: Enoxaparin 30 MG/0.3 ML Syringe SUBCUT SCH (09:00)
--- OUTSIDE RECORDS SUMMARY | 2020-06-07 12:50 | XMSREPORT ---
:1945 Author Name Ralph Moctezuma Address Unavailable Unavailable , Care Team Providers Name Role Phone Unavailable Unavailable Unavailable Rizwan CHENG Unavailable Unavailable Rosales Unavailable Unavailable Unavailable Unavailable Unavailable Reason for Referral confusion and disorientation Assessments No Information Problems Abnormal urine findings (791.9) (R82.90) Osteoporosis (733.00) (M81.0) Confusion and disorientation (780.97) (R41.0) Osteoarthritis (715.90) (M19.90) Chronic orthostatic hypotension (458.0) (I95.1) Vitamin B12 deficiency (266.2) (E53.8) Ankle pain, right (719.47) (M25.571) SOB (shortness of breath) on exertion (786.05) (R06.02) Increasing shortness of breath (786.05) (R06.02) Nail fungus (110.1) (B35.1) Hallucinations (780.1) (R44.3) Parkinsonism (332.0) (G20) Right knee pain (719.46) (M25.561) Bruising (924.9) (T14.8XXA) Edema, peripheral (782.3) (R60.9) Allergies and Adverse Reactions No Known Allergies (Allergy) Medications Amantadine HCl - 100 MG Oral Tablet; KEI E 1/2 TABLET BY MOUTH THREE TIMES DAILY NEEDED; 7AM, 1 PM, 7PM [facility] Start: 18-Nov-2019 Quantity: 135 Refills: 1 Carbidopa-Levodopa 25-100 MG Oral Tablet ; TAKE 2 TABLET AT 7AM, 10AM,1PM,4PM,7PM,10PM,1AM AND 4AM [facility] Start: 20-Dec-2019 Quantity: 480 Refills: 1 Cyanocobalamin 1000 MCG/ML Injection Esther uti; INJECT 1 ML INTRAMUSCULARLY ONCE A MONTH [facility] Start: 18-Mar-2019 Quantity: 3 Refills: 3 Fludrocortisone Acetate 0.1 MG Oral Tablet; TAKE 1 TAB LET BY MOUTH TWICE A DAY [facility] Start: 14-Sep-2019 Quantity: 180 Refills: 1 Ibuprofen 200 MG Oral Tablet; TAKE 1 TABLET EVERY 4-6 HOURS NEEDED , R.N. Refills: 0 Melatonin 3 MG Oral Tablet; TAKE 1 TABLET Bedtime , R.N. Refills: 0 Midodrine HCl - 5 MG Oral Tablet; Take 1 tablet at 7 am, 10 am, and 1 pmTake 2 tablets at 4 pm [facility] Start: 16-Jun-2019 Quantity: 150 Refills: 5 Vitamin B Complex-C CAPS; TAKE 1 CAPSULE Daily , R.N. Refills: 0 Vitamin D3 125 MCG (5000 UT) Oral Capsule; TAKE 1 CAPS ULE ORALLY ONCE DAILY , R.N. Quantity: 300 Refills: 0 Docusate Sodium 250 MG Oral Capsule; TAKE 1 CAPSULE Ev fabián morning [facility] Quantity: 90 Refills: 3 Aspirin 81 MG TABS; TAKE 1 TABLET DAILY. , R.N. Refills: 0 Albuterol Sulfate HFA 108 (90 Base) MCG/ ACT Inhalation Aerosol Solution; 2 PUFFS UP TO 4 TIMES DAILY NEEDED. [facility] Start: 02-Aug-2019 Quantity: 1 6.7 GM Inhaler Refills: 0 Albuterol Sulfate (2.5 MG/3ML) 0.083% In halation Nebulization Solution; USE 1 VIAL IN NEBULIZER TREATMENT FOUR TIMES DAILY [facility] Start: 18-Oct-2019 Quantity: 360 Refills: 0 Procedures History of Cataract surgery Status: Comp leted Immunizations Influenza On: 29-Dec-2017 Influenza 0 On: 18-Dec-2018 Lot #: [id number], Influenza 0 On: 10-Jan-2020 Lot #: [id number], Plan of Treatment Planned Goals not documented Results No Known Results Results not documented
[2020-06-07] MEDS: Aspirin 81 MG Tab.Chew PO SCH (20:49)
[2020-06-07] MEDS: Melatonin 3 MG Tab PO SCH (20:49)
--- NOTE | 2020-06-07 21:10 | PCM.PN ---
- General Info Date of Service: 06/07/20 Admission Dx/Problem (Free Text): Improved - no further hallucinations. Calm and compliant. Eating well. Tremor has not worsened significantly. - Patient Data Vitals - Most Recent: Last Vital Signs Temp 98.3 F 06/07/20 19:45 Pulse 87 06/07/20 19:45 Resp 18 06/07/20 19:45 BP 113/65 06/07/20 19:52 Pulse Ox 100 06/07/20 19:45 Weight - Most Recent: 103 lb I&O - Last 24 Hours: Intake & Output 06/07/20 06/07/20 06/07/20 06:59 14:59 22:59 Intake Total 100 570 Output Total 275 350 200 Balance -175 220 -200 Erik Results Last 24 Hours: Microbiology 06/06/20 03:42 Urine Culture - Preliminary Urine, Quick Cath (In-Out) 06/06/20 03:42 Aerobic Blood Culture - Preliminary Blood - Venous - Iv Start NO GROWTH AFTER 1 DAY Anaerobic Blood Culture - Preliminary NO GROWTH AFTER 1 DAY Med Orders - Current: Current Medications Acetaminophen (Acetaminophen 325 Mg Tab) 650 mg PO Q4H PRN PRN Reason: Pain (Mild 1-3)/fever Aspirin (Aspirin 81 Mg Tab.Chew) 81 mg PO BEDTIME [facility] Last Admin: 06/07/20 20:49 Dose: 81 mg Documented by: Carbidopa/Levodopa (Carbidopa/Levodopa 25-100 Mg Tab) 2 tab PO Q3H [facility] Last Admin: 06/07/20 19:39 Dose: 2 tab Documented by: Docusate Sodium (Docusate Sodium 100 Mg Cap) 200 mg PO DAILY [facility] Last Admin: 06/07/20 08:29 Dose: 200 mg Documented by: Donepezil HCl (Donepezil 10 Mg Tab) 10 mg PO BID [facility] Last Admin: 06/07/20 20:49 Dose: 10 mg Documented by: Enoxaparin Sodium (Enoxaparin 40 Mg/0.4 Ml Syringe) 40 mg SUBCUT DAILY [facility] Last Admin: 06/07/20 08:31 Dose: 40 mg Documented by: Fludrocortisone Acetate (Fludrocortisone 0.1 Mg Tab) 0.05 mg PO DAILY [facility] Last Admin: 06/07/20 08:30 Dose: 0.05 mg Documented by: Ibuprofen (Ibuprofen 200 Mg Tab) 200 mg PO Q4H PRN PRN Reason: Pain (moderate 4-6) Last Admin: 06/06/20 20:37 Dose: 200 mg Documented by: Melatonin (Melatonin 3 Mg Tab) 3 mg PO BEDTIME [facility] Last Admin: 06/07/20 20:49 Dose: 3 mg Documented by: Midodrine (Midodrine 2.5 Mg Tab) 5 mg PO 0700,1000,1300,1600 [facility] Last Admin: 06/07/20 17:10 Dose: 5 mg Documented by: Polyethylene Glycol (Polyethylene Glycol 3350 Powder 17 Gm Packet) 17 gm PO DAILY [facility] Last Admin: 06/07/20 08:28 Dose: 17 gm Documented by: Quetiapine Fumarate (Quetiapine 25 Mg Tab) 25 mg PO BID [facility] Last Admin: 06/07/20 20:49 Dose: 25 mg Documented by: Sodium Chloride (Sodium Chloride 0.9% 10 Ml Syringe) 10 ml FLUSH ASDIRECTED PRN PRN Reason: Keep Vein Open Last Admin: 06/07/20 08:31 Dose: 10 ml Documented by: Discontinued Medications Amantadine HCl (Amantadine 100 Mg Cap) 50 mg PO TID [facility] Last Admin: 06/06/20 14:17 Dose: Not Given Documented by: Carbidopa/Levodopa (Carbidopa/Levodopa 25-100 Mg Tab) 1 tab PO ONETIME ONE Stop: 06/06/20 04:29 Last Admin: 06/06/20 04:38 Dose: 1 tab Documented by: Carbidopa/Levodopa (Carbidopa/Levodopa 25-100 Mg Tab) 1 tab PO ONETIME ONE Stop: 06/06/20 05:41 Last Admin: 06/06/20 05:54 Dose: 1 tab Documented by: Enoxaparin Sodium (Enoxaparin 30 Mg/0.3 Ml Syringe) 30 mg SUBCUT DAILY [facility] Heparin Sodium (Porcine) (Heparin Sodium 5,000 Units/Ml Vial) 5,000 units SUBCUT Q8HR [facility] Last Admin: 06/06/20 21:58 Dose: Not Given Documented by: Amantadine 100 Mg (Tab Pt Own Med) 0 each PO BID@0700,1900 [facility] Last Admin: 06/06/20 13:54 Dose: 0.5 each Documented by: Quetiapine Fumarate (Quetiapine 25 Mg Tab) 12.5 mg PO ONETIME ONE Stop: 06/06/20 07:30 Last Admin: 06/06/20 07:39 Dose: 12.5 mg Documented by: - Exam Quality Assessment: No: Supplemental Oxygen General: Alert, Oriented, Cooperative HEENT: Pupils Equal, Pupils Reactive Neck: Supple Lungs: Clear to Auscultation, Normal Respiratory Effort Cardiovascular: Regular Rate, Regular Rhythm, No Murmurs GI/Abdominal Exam: Normal Bowel Sounds, Soft, Non-Tender, No Distention Back Exam: Normal Inspection Extremities: No Pedal Edema Skin: Warm, Dry, Intact Neurological: Other (cogwheel rigidity - mild, slight tremor) Psy/Mental Status: Alert, Normal Affect, Normal Mood - Patient Data Result Diagrams: 06/06/20 03:42 06/06/20 03:42 Erik Results Last 24 hrs: Microbiology 06/06/20 03:42 Urine Culture - Preliminary Urine, Quick Cath (In-Out) 06/06/20 03:42 Aerobic Blood Culture - Preliminary Blood - Venous - Iv Start NO GROWTH AFTER 1 DAY Anaerobic Blood Culture - Preliminary NO GROWTH AFTER 1 DAY Sepsis Event Note - Evaluation Sepsis Screening Result: No Definite Risk - Focused Exam Vital Signs: Vital Signs Temp Pulse Pulse Resp BP BP Pulse Ox 06/07/20 19:52 113/65 06/07/20 19:45 98.3 F 87 18 71/38 L 100 06/07/20 16:00 97.6 F 77 16 151/93 H 98 06/07/20 12:00 98.4 F 75 19 171/66 H 99 06/07/20 09:53 103 H 71 20 118/94 H 96 06/07/20 09:52 71 159/95 H 06/07/20 09:48 78 78/46 L 96 06/07/20 09:47 97.8 F 83 18 84/42 L 97 - Problem List Review Problem List Initiated/Reviewed/Updated: No - My Orders Last 24 Hours: My Active Orders 06/06/20 20:14 Ibuprofen [Motrin] 200 mg PO Q4H PRN 06/06/20 20:43 Sodium Chloride 0.9% [Saline Flush] 10 ml FLUSH ASDIRECTED PRN 06/06/20 21:00 Aspirin 81 mg PO BEDTIME Melatonin 3 mg PO BEDTIME QUEtiapine [SEROqueL] 25 mg PO BID 06/07/20 09:00 Enoxaparin [Lovenox] 40 mg SUBCUT DAILY polyethylene glycoL 3350 [MiraLAX] 17 gm PO DAILY - Plan Plan:: #visual hallucinations and paranoia - this is most likely a dopaminergic side effect of the large dose of Sinemet and amantadine - d/w neuro at [facility] for her neurologist Dr Lopez >>> stop amantadine w/o taper and they agree w/ seroquel - risks/benefits of seraquel d/w family and they are ok - so far no recurrence of hallucinations since started - CM working on placement short term in [place] w/ dementia unit in [place] close to daughter #PD - med mgt as above #chronic dysuria - UA is bland - will await cultures PPX - LMWH Full code and daughter updated
[2020-06-08] MEDS: Carbidopa/Levodopa 25-100 MG Tab PO SCH ×5 (00:58→14:35)
[2020-06-08] MEDS: Midodrine 2.5 MG Tab PO SCH ×4 (07:26→14:35)
[2020-06-08] MEDS: Polyethylene Glycol 3350 Powder 17 GM Packet PO SCH (08:43)
[2020-06-08] MEDS: Enoxaparin 40 MG/0.4 ML Syringe SUBCUT SCH (08:43)
[2020-06-08] MEDS: Docusate Sodium 100 MG Cap PO SCH (08:44)
[2020-06-08] MEDS: Fludrocortisone 0.1 MG Tab PO SCH (08:45)
[2020-06-08] MEDS: Donepezil 10 MG Tab PO SCH (08:45)
[2020-06-08] MEDS: QUEtiapine 25 MG Tab PO SCH (08:45)
--- NOTE | 2020-06-08 18:58 | PCM.DCSUM1 ---
Discharge Summary - Hospital Course Free Text/Narrative:: 75F w/ pmh PD, hypotension, COVID19 several months ago p/w hallucinations. Pt lives w/ who provides extensive hx. Over past several months the pt has developed paranoia and hallucinations. She typically hallucinates people sitting on chairs or on the couch in the house. Sometimes they have multiple heads. This makes her very upset. She denies hearing any voices. They people she sees don't say anything to her. She has not been combative or aggressive towards the . He works during the day and is home for the night. Rarely, but the patient has been known to wonder out of the house to look for him. He denies any truly dangerous situations ex. wondering out dressed inappropriately, leaving stove on, leaving the house door open. She denies any physical symptoms of pain, nausea, abdominal pains, dyspnea, cough. She does have chronic dysuria since her COVID19 diagnosis several months ago. Of note the pt is on a rather large Sinemet dose. She takes 2x 25/100 mg tabs q3h. This is a total of 1.6 grams of levodopa per 24h. Additionally she takes amantadine. In addition to current paranoia and hallucinations in the past the pt had apparently been noted hypotensive requiring florinef and midodrine for maintenance. In consultation w/ the neurology service out of [place] who manage her PD. They recommended acutely stopping amantadine w/o taper. After d/w family risks and benefits I also initiated Seroquel 25 mg bid w/ some significant improvement in hallucinations but remaining problem of impulse control. Pt was d/c into care of family who will check her into a NH w/ memory unit in [place] where her daughter lives. The facility has a staff psychiatrist who will titrate medications and hopefully the pt will be there short term. - Discharge Data Discharge Date: 06/08/20 Discharge Disposition: Home, Self-Care 01 Condition: Stable - Referral to Home Health Primary Care Physician: Marija Rosales NP - Discharge Plan *PRESCRIPTION DRUG MONITORING PROGRAM REVIEWED*: Not Applicable *COPY OF PRESCRIPTION DRUG MONITORING REPORT IN PATIENT JANET: Not Applicable Prescriptions/Med Rec: QUEtiapine [SEROquel] 25 mg PO BID #60 tablet Home Medications: Home Meds Carbidopa/Levodopa [Sinemet 25-100 mg Tablet] 2 tab PO Q3H 02/14/17 [History] Fludrocortisone [Florinef] 0.05 mg PO DAILY 02/14/17 [History] Midodrine 5 mg PO QID 02/14/17 [History] Cyanocobalamin (Vitamin B-12) [Cyanocobalamin Injection] 1,000 mcg IM Q30D 06/02/17 [History] Ibuprofen 200 mg PO Q4HR 06/02/17 [History] Melatonin 3 mg PO BEDTIME 06/02/17 [History] Aspirin 81 mg PO BEDTIME 11/06/18 [History] Cholecalciferol (Vitamin D3) [Vitamin D] 5,000 intlu PO DAILY 11/06/18 [History] Docusate Sodium 250 mg PO DAILY 11/06/18 [History] Donepezil HCl [Aricept] 10 mg PO BID 06/06/20 [History] Vitamin B Complex 1 each PO DAILY 06/06/20 [History] QUEtiapine [SEROquel] 25 mg PO BID #60 tablet 06/08/20 [Rx] Referrals: Marija Rosales NP [Primary Care Provider] - Kristi Astorga PA-C [Ordering Only Provider] - - Discharge Summary/Plan Comment DC Time >30 min.: Yes (40 min) - General Info Date of Service: 06/08/20 - Patient Data Vitals - Most Recent: Last Vital Signs Temp 96.6 F L 06/08/20 12:00 Pulse 92 06/08/20 12:00 Resp 16 06/08/20 12:00 BP 126/62 06/08/20 12:00 Pulse Ox 100 06/08/20 12:00 Weight - Most Recent: 103 lb I&O - Last 24 hours: Intake & Output 06/08/20 06/08/20 06/08/20 06:59 14:59 22:59 Intake Total 200 280 Output Total 200 Balance 0 280 CARLOZ Results - Last 24 hrs: Microbiology 06/06/20 03:42 Urine Culture - Final Urine, Quick Cath (In-Out) 06/06/20 03:42 Aerobic Blood Culture - Preliminary Blood - Venous - Iv Start NO GROWTH AFTER 2 DAYS Anaerobic Blood Culture - Preliminary NO GROWTH AFTER 2 DAYS Med Orders - Current: Current Medications Discontinued Medications Acetaminophen (Acetaminophen 325 Mg Tab) 650 mg PO Q4H PRN PRN Reason: Pain (Mild 1-3)/fever Amantadine HCl (Amantadine 100 Mg Cap) 50 mg PO TID [facility] Last Admin: 06/06/20 14:17 Dose: Not Given Documented by: Aspirin (Aspirin 81 Mg Tab.Chew) 81 mg PO BEDTIME [facility] Last Admin: 06/07/20 20:49 Dose: 81 mg Documented by: Carbidopa/Levodopa (Carbidopa/Levodopa 25-100 Mg Tab) 1 tab PO ONETIME ONE Stop: 06/06/20 04:29 Last Admin: 06/06/20 04:38 Dose: 1 tab Documented by: Carbidopa/Levodopa (Carbidopa/Levodopa 25-100 Mg Tab) 1 tab PO ONETIME ONE Stop: 06/06/20 05:41 Last Admin: 06/06/20 05:54 Dose: 1 tab Documented by: Carbidopa/Levodopa (Carbidopa/Levodopa 25-100 Mg Tab) 2 tab PO Q3H [facility] Last Admin: 06/08/20 14:35 Dose: 2 tab Documented by: Docusate Sodium (Docusate Sodium 100 Mg Cap) 200 mg PO DAILY [facility] Last Admin: 06/08/20 08:44 Dose: 200 mg Documented by: Donepezil HCl (Donepezil 10 Mg Tab) 10 mg PO BID [facility] Last Admin: 06/08/20 08:45 Dose: 10 mg Documented by: Enoxaparin Sodium (Enoxaparin 30 Mg/0.3 Ml Syringe) 30 mg SUBCUT DAILY [facility] Enoxaparin Sodium (Enoxaparin 40 Mg/0.4 Ml Syringe) 40 mg SUBCUT DAILY [facility] Last Admin: 06/08/20 08:43 Dose: 40 mg Documented by: Fludrocortisone Acetate (Fludrocortisone 0.1 Mg Tab) 0.05 mg PO DAILY [facility] Last Admin: 06/08/20 08:45 Dose: 0.05 mg Documented by: Heparin Sodium (Porcine) (Heparin Sodium 5,000 Units/Ml Vial) 5,000 units SUBCUT Q8HR [facility] Last Admin: 06/06/20 21:58 Dose: Not Given Documented by: Ibuprofen (Ibuprofen 200 Mg Tab) 200 mg PO Q4H PRN PRN Reason: Pain (moderate 4-6) Last Admin: 06/06/20 20:37 Dose: 200 mg Documented by: Melatonin (Melatonin 3 Mg Tab) 3 mg PO BEDTIME [facility] Last Admin: 06/07/20 20:49 Dose: 3 mg Documented by: Midodrine (Midodrine 2.5 Mg Tab) 5 mg PO 0700,1000,1300,1600 [facility] Last Admin: 06/08/20 14:35 Dose: 5 mg Documented by: Amantadine 100 Mg (Tab Pt Own Med) 0 each PO BID@0700,1900 [facility] Last Admin: 06/06/20 13:54 Dose: 0.5 each Documented by: Polyethylene Glycol (Polyethylene Glycol 3350 Powder 17 Gm Packet) 17 gm PO DAILY [facility] Last Admin: 06/08/20 08:43 Dose: 17 gm Documented by: Quetiapine Fumarate (Quetiapine 25 Mg Tab) 12.5 mg PO ONETIME ONE Stop: 06/06/20 07:30 Last Admin: 06/06/20 07:39 Dose: 12.5 mg Documented by: Quetiapine Fumarate (Quetiapine 25 Mg Tab) 25 mg PO BID [facility] Last Admin: 06/08/20 08:45 Dose: 25 mg Documented by: Sodium Chloride (Sodium Chloride 0.9% 10 Ml Syringe) 10 ml FLUSH ASDIRECTED PRN PRN Reason: Keep Vein Open Last Admin: 06/07/20 08:31 Dose: 10 ml Documented by: - Exam Quality Assessment: Denies: Supplemental Oxygen General: Reports: Alert, Oriented, Cooperative Neck: Reports: Supple Lungs: Reports: Clear to Auscultation, Normal Respiratory Effort Cardiovascular: Reports: Regular Rate, Regular Rhythm, No Murmurs GI/Abdominal Exam: Normal Bowel Sounds, Soft, Non-Tender, No Distention Rectal (Female) Exam: Normal Exam Back Exam: Reports: Normal Inspection Extremities: No Pedal Edema Neurological: Reports: No New Focal Deficit Psy/Mental Status: Reports: Alert, Normal Affect, Normal Mood
== END 2020-06-08 14:51 | disposition home or self-care (01) ==
LOC: DL.ED 03:26 → UNDOADMIN 05:12 → DL.MS 05:12 → INTOOBSV 05:12 → DL.MS 07:19 → UNDOADMIN 07:19
PROVIDERS: ADMIT Internal Medicine; ATTEND Internal Medicine
DX: R41.0 Disorientation, unspecified (principal); R44.1 Visual hallucinations; G20 Parkinson's disease; R30.0 Dysuria; G47.00 Insomnia, unspecified; J44.9 Chronic obstructive pulmonary disease, unspecified; Z79.82 Long term (current) use of aspirin; Z20.822 Contact with and (suspected) exposure to COVID-19; Z86.16 Personal history of COVID-19; Z79.899 Other long term (current) drug therapy; Z98.890 Other specified postprocedural states
CPT/HCPCS: 36415; 70450; 71045; 80053; 81001; 83605; 83735; 83880; 85025; 85610; 87040; 87086; 93005; 96372; 99284; 99285; A9270; G0378; J1650; U0002; 99217; 99219; 99225